=== PATIENT | male | born 1960 | race Two or more races ===

== ENCOUNTER 2020-02-14 18:12 | Emergency (ER) | payer BC ==
[~2020-02-14] VITALS: Ht 160 cm; Wt 72.6 kg
--- NOTE | 2020-02-14 18:17 | NUR ---
ED Nurse Note: Pt not in the waiting room.
[2020-02-14] MEDS ORDERED: Ketorolac 30mg Inj IV ONE (18:30)
--- NOTE | 2020-02-14 18:42 | Emergency Room Report ---
History of Present Illness General Chief Complaint: Alcohol Intoxication Source: Patient (Elias Mejia) Present Illness HPI 59-year-old male with history of alcohol abuse here complaining of 2 weeks of intermittent diffuse abdominal pain and few days of nonbloody emesis. Denies diarrhea, fever and chills, cough and congestion, shortness of breath. Patient reports that he drinks alcohol every day and his last alcoholic drink was 6 AM this morning. Family brought him in today. Denies chest pain, shortness of breath, headache and dizziness. Is able to speak and answer questions. Denies any drug use, denies any past medical history. Reports that he smokes cigarettes on a daily basis. (Elias Mejia) Allergies: Coded Allergies: No Known Allergies (Unverified , 02/14/20) COVID-19 Screening Contact w/high risk pt: No Recent Travel to affected area: No Experienced COVID-19 symptoms?: No COVID-19 Testing performed APPLICATIONS SUPPORT ENGINEER: No (Elias Mejia) Patient History Past Medical History: see triage record Pertinent Family History: none Social History: Reports: alcohol use Reviewed Nursing Documentation: PMH: Agreed; PSxH: Agreed (Elias Mejia) Nursing Documentation-PMH Past Medical History: No Stated History (Elias Mejia) Review of Systems All Other Systems: negative except mentioned in HPI (Elias Mejia) Physical Exam Vital Signs Date Time Temp Pulse Resp B/P (MAP) Pulse Ox O2 Delivery O2 Flow Rate FiO2 02/14/20 18:22 98.8 112 16 137/86 (103) 96 Room Air Sp02 EP Interpretation: reviewed, normal General Appearance: no apparent distress, alert, GCS 15, non-toxic Head: normocephalic, atraumatic Eyes: bilateral eye normal inspection, bilateral eye PERRL ENT: hearing grossly normal, normal pharynx, no angioedema, normal voice Neck: full range of motion, supple/symm/no masses Respiratory: chest non-tender, lungs clear, normal breath sounds, no rhonchi, no respiratory distress, no retraction, no wheezing, speaking full sentences Cardiovascular #1: regular rate, rhythm, no edema, no murmur Gastrointestinal: normal bowel sounds, non tender, soft, no mass, no organomegaly, no peritonitis, no bruit, non-distended, no guarding, no hernia, no pulsatile mass, no rebound Rectal: deferred Genitourinary: no CVA tenderness Musculoskeletal: back normal, no calf tenderness Neurologic: alert, motor strength/tone normal, oriented x3, sensory intact, responsive, speech normal Psychiatric: judgement/insight normal, memory normal, mood/affect normal, no suicidal/homicidal ideation Skin: no rash Lymphatic: no adenopathy (Elias Mejia) Medical Decision Making PA Attestation All diagnoses and treatment plans were reviewed and discussed with my supervising physician Dr. Warren (Elias Mejia) Diagnostic Impression: Primary Impression: Acute alcoholic intoxication Qualified Codes: F10.920 - Alcohol use, unspecified with intoxication, uncomplicated Additional Impression: Abdominal pain Qualified Codes: R10.84 - Generalized abdominal pain ER Course 59-year-old male with history of alcohol abuse here complaining of 2 weeks of intermittent diffuse abdominal pain and few days of nonbloody emesis. Denies diarrhea, fever and chills, cough and congestion, shortness of breath. Patient reports that he drinks alcohol every day and his last alcoholic drink was 6 AM this morning. Family brought him in today. Denies chest pain, shortness of breath, headache and dizziness. Is able to speak and answer questions. Denies any drug use, denies any past medical history. Reports that he smokes cigarettes on a daily basis. Ddx considered but are not limited to: Alcohol intoxication with altered level of consciousness, alcohol intoxication causing pancreatitis, alcohol abuse, multi drug use and alcohol intoxication, pancreatitis Vital signs: are WNL, pt. is afebrile H&PE are most consistent with: acute alcohol intoxication, abdominal pain ORDERS: CBC, CMP, UA, tox screen, lipase, troponin, EtOH serum, chest x-ray, CT abdomen pelvis with contrast, dicyclomine, pepcid, Motrin, Zofran ER intervention: NS bolus, Zofran, Pepcid, Toradol DISCHARGE: At this time pt. is stable for d/c to home. Will provide printed patient care instructions, and any necessary prescriptions. Care plan and follow up instructions have been discussed with the patient prior to discharge. Avoid drinking alcohol, increase oral hydration, take medication as directed, follow-up with your primary care provider, if worsening symptoms return to the emergency room I signed out the patient to Dr. Warren at 9PM (Elias Mejia) ER Course Please see above note. Patient signed out to me to review CT scan and reevaluate prior to discharge. Full history and physical performed by me. Also discussed in detail with patient's daughter. Long history of alcohol abuse. Continued ingestion since mid December. No history of seizures, DTs or GI bleeding complications. EKG obtained and read by me due to the possibility of cardiac disease. Labs reviewed and CT. Lipase minimally elevated however patient has benign abdomen at this time and tolerating oral intake. No evidence of withdrawal or DTs. Discussed treatment plan with patient and also with daughter. Prescriptions changed slightly to include Tylenol instead of ibuprofen. Rehab and AA referrals given to patient and daughter. All labs given to daughter and suggested follow-up with patient's physician. Advised to return if not tolerating treatment plan. No medical emergency. Patient stable for outpatient observation and treatment. (Kye Warren MD) EKG Diagnostic Results Rate: normal Rhythm: NSR ST Segments: no acute changes (Kye Warren MD) Rhythm Strip Diag. Results EP Interpretation: yes Rhythm: NSR, no PVC's, no ectopy (Kye Warren MD) Chest X-Ray Diagnostic Results Chest X-Ray Diagnostic Results : Chest X-Ray Ordered: Yes # of Views/Limited/Complete: 1 View Indication: Other EP Interpretation: Yes PA Xray: Interpretation reviewed, by supervising MD, and agrees with findings. Interpretation: no consolidation, no effusion, no pneumothorax Impression: No acute disease Electronically Signed by: Elias Villatoro PA-C (Elias Mejia) CT/MRI/US Diagnostic Results CT/MRI/US Diagnostic Results : Imaging Test Ordered: CT abdomen pelvis with contrast (Elias Mejia) CT/MRI/US Diagnostic Results : Imaging Test Ordered: Abdomen and pelvis Impression 1. Fecalization of small bowel suggesting delayed transit. Otherwise, no acute abnormality of the abdomen and pelvis. 2. Sigmoid diverticulosis without evidence of diverticulitis. 3. Diffuse hypoenhancement of the liver suggesting hepatic steatosis. (Kye Warren MD) Last Vital Signs Date Time Temp Pulse Resp B/P (MAP) Pulse Ox O2 Delivery O2 Flow Rate FiO2 02/14/20 18:22 98.8 112 16 137/86 (103) 96 Room Air (Elias Mejia) Last Vital Signs Date Time Temp Pulse Resp B/P (MAP) Pulse Ox O2 Delivery O2 Flow Rate FiO2 02/14/20 21:50 98.5 93 22 128/79 99 Room Air Status: improved (Kye Warren MD) Disposition: HOME, SELF-CARE Condition: Improved Scripts Acetaminophen (Tylenol) 325 Mg Tablet 650 MG ORAL Q6H PRN for Prn Pain/Headache/Temp > 101, #20 TAB 0 Refills Prov: Kye Warren MD 02/14/20 Ondansetron (Zofran) 4 Mg Tablet 4 MG ORAL Q6H PRN for Nausea & Vomiting, #14 TAB Prov: Elias Mejia 02/14/20 Famotidine* (Pepcid 20mg tablet*) 20 Mg Tablet 20 MG ORAL TWICE A DAY, #60 TAB 0 Refills Prov: Elias Mejia 02/14/20 Dicyclomine Hcl* (DICYCLOMINE HCL*) 10 Mg Capsule 10 MG ORAL QID, #20 CAP Prov: Elias Mejia 02/14/20 Patient Instructions: Abdominal Pain, Adult, [id number], Alcohol Abuse and Nutrition, Alcohol Intoxication, [id number] Additional Instructions: Avoid drinking alcohol, increase oral hydration, take medication as directed, follow-up with your primary care provider, if worsening symptoms return to the emergency room Elias Mejia Feb 14, 2020 18:42 Kye Warren MD Feb 14, 2020 21:01
--- NOTE | 2020-02-14 18:45 | NUR ---
ED Nurse Note:pt. came from home with abdominal pain nausea and alcohol obuse, pt. is ambulatory and A/ox3, placed on alarm security or surveillance monitor, VSS, blood and urine sent to labs, given IV meds and fluids
[2020-02-14 18:47] VITALS: BP 115/75
--- NOTE | 2020-02-14 19:07 | NUR ---
HAND-OFF: Report given to Vandana.
--- NOTE | 2020-02-14 19:09 | NUR ---
ED Nurse Note: Recieved report from ANA PAULA Lundberg. Patient resting in bed, no acute distress noted.
[2020-02-14 19:12] LABS: APPEARANCE,URINE CLEAR; BILIRUBIN, URINE NEGATIVE (NEGATIVE); COLOR,URINE PALE YELLOW; EOSINOPHILS % (AUTO) 6.2 % (0.0-3.0); GLUCOSE, URINE (UA) NEGATIVE (NEGATIVE); HEMATOCRIT 41.5 % (42.0-52.0); HEMOGLOBIN 13.6 G/DL (14.2-18.0); KETONES,URINE NEGATIVE (NEGATIVE); LEUKOCYTE ESTERASE ,URINE NEGATIVE (NEGATIVE); LYMPHOCYTES % (AUTO) 27.2 % (20.0-45.0); MEAN CORPUSCULAR VOLUME 94 FL (80-99); MONOCYTES % (AUTO) 11.4 % (1.0-10.0); NEUTROPHILS % (AUTO) 52.1 % (45.0-75.0); NITRITE,URINE NEGATIVE (NEGATIVE); PH,URINE 6.5 (4.5-8.0); PLATELET COUNT 178 K/UL (150-450); PROTEIN,URINE 1+ (NEGATIVE); RED CELL DISTRIBUTION WIDTH 16.4 % (11.6-14.8); UROBILINOGEN,URINE NORMAL MG/DL (0.0-1.0); WHITE BLOOD COUNT 6.2 K/UL (4.8-10.8)
--- NOTE | 2020-02-14 19:12 | Diagnostic Imaging Report ---
EXAM: XR Chest, 1 View CLINICAL HISTORY: PAIN TECHNIQUE: Frontal view of the chest. COMPARISON: None. FINDINGS: Lungs: Unremarkable. No consolidation. Pleural space: Unremarkable. No pneumothorax. Heart: Unremarkable. No cardiomegaly. Mediastinum: Unremarkable. Bones/joints: Unremarkable. Vasculature: Atherosclerotic vascular disease is seen within a tortuous aorta. IMPRESSION: No acute cardiopulmonary disease.
[2020-02-14 19:16] VITALS: BP 112/73
[2020-02-14 19:17] LABS: ANION GAP 16 mmol/L (5-15); BLOOD UREA NITROGEN 6 mg/dL (7-18); CALCIUM 8.4 MG/DL (8.5-10.1); CARBON DIOXIDE 23 MMOL/L (21-32); CHLORIDE 98 MMOL/L (98-107); CREATININE 0.9 MG/DL (0.55-1.30); POTASSIUM 3.6 MMOL/L (3.5-5.1); SODIUM 137 MMOL/L (136-145)
[2020-02-14 19:20] LABS: INR 0.9 (0.9-1.1)
[2020-02-14 19:23] LABS: ALANINE AMINOTRANSFERASE 128 U/L (12-78); ALBUMIN 4.4 G/DL (3.4-5.0); ALBUMIN/GLOBULIN RATIO 1.3 (1.0-2.7); ALKALINE PHOSPHATASE 70 U/L (46-116); ASPARTATE AMINO TRANSFERASE 262 U/L (15-37); BILIRUBIN,TOTAL 0.8 MG/DL (0.2-1.0)
[2020-02-14] MEDS ORDERED: Omnipaque-300 100ml vial INJ PRN (19:45)
--- NOTE | 2020-02-14 19:59 | NUR ---
ED Nurse Note: Patient taken to CT in stable condition
--- NOTE | 2020-02-14 20:15 | NUR ---
ED Nurse Note: Patient returned from CT in stable condition and placed back on distributor sales consultant.
[2020-02-14] MEDS ORDERED: ZOFRAN4 M1 ORAL (20:52)
[2020-02-14] MEDS ORDERED: IBUPROFEN400 MG ORAL (20:52)
[2020-02-14] MEDS ORDERED: DICYCLOMINE HCL10 MG ORAL (20:52)
[2020-02-14] MEDS ORDERED: FAMOTIDINE20 MG ORAL (20:52)
[2020-02-14] MEDS ORDERED: Thiamine HCl 100 MG in D5W 55 ML IVPB ONE (21:00)
--- NOTE | 2020-02-14 21:14 | Diagnostic Imaging Report ---
EXAM: CT Abdomen and Pelvis With Intravenous Contrast CLINICAL HISTORY: PAIN TECHNIQUE: Axial computed tomography images of the abdomen and pelvis with intravenous contrast. CTDI is 4.7 mGy and DLP is 232.6 mGy-cm. One or more of the following dose reduction techniques were used: automated exposure control, adjustment of the mA and/or kV according to patient size, use of iterative reconstruction technique. COMPARISON: None available. FINDINGS: Lung bases: Unremarkable. No mass. No consolidation. ABDOMEN: Liver: Diffuse hypoenhancement of the liver. Gallbladder and bile ducts: Unremarkable. No calcified stones. No ductal dilation. Pancreas: Unremarkable. No mass. No ductal dilation. Spleen: Unremarkable. No splenomegaly. Adrenals: Unremarkable. No mass. Kidneys and ureters: Bilateral simple appearing renal cysts are demonstrated, the largest measuring 3.1 cm on the right and 0.9 cm on the left. No specific follow-up is recommended. Stomach and bowel: Colonic diverticulosis is demonstrated, most prominent within the sigmoid colon. No pericolonic inflammatory change. Fecalization of small bowel. No obstruction. No mucosal thickening. PELVIS: Appendix: No findings to suggest acute appendicitis. Bladder: Unremarkable. No mass. Reproductive: Unremarkable as visualized. ABDOMEN and PELVIS: Intraperitoneal space: Unremarkable. No free air. No significant fluid collection. Bones/joints: Degenerative changes of the visualized spine are demonstrated, most prominent within the lower lumbar spine. Posterior disc bulges at L4-L5 and L5-S1. No acute fracture. No dislocation. Soft tissues: Unremarkable. Vasculature: Atherosclerotic vascular disease. No abdominal aortic aneurysm. Lymph nodes: Unremarkable. No enlarged lymph nodes. IMPRESSION: 1. Fecalization of small bowel suggesting delayed transit. Otherwise, no acute abnormality of the abdomen and pelvis. 2. Sigmoid diverticulosis without evidence of diverticulitis. 3. Diffuse hypoenhancement of the liver suggesting hepatic steatosis.
[2020-02-14] MEDS ORDERED: TYLENOL325 MG ORAL (21:38)
[2020-02-14 21:50] VITALS: BP 128/79
--- NOTE | 2020-02-14 21:50 | NUR ---
ER DISCHARGE NOTE: Patient is cleared to be discharged per ERMD, pt is aox4, on room air, with stable vital signs. pt was given dc and prescription instructions, pt was able to verbalize understanding, pt id band and iv site removed intact without complications. pt is able to ambulate with steady gait. pt took all belongings. pt stable upon discharge accompanied by daughter.
== END 2020-02-14 21:50 | disposition home or self-care (01) ==
LOC: EMR 18:42
DX: F10.129 Alcohol abuse with intoxication, unspecified (principal); R10.84 Generalized abdominal pain
CPT/HCPCS: 36415; 71045; 74177; 80053; 80307; 81003; 83690; 84484; 85025; 85610; 85730; 93005; 96361; 96365; 96375; 99284; G0480; J1885; J2405; J7030; Q9967; S0028